=== PATIENT | female | born 1940 | race African-American/Black ===

== ENCOUNTER 2017-05-06 15:14 | Emergency (ER) | payer MEDICARE, BC ==
[~2017-05-06] VITALS: Ht 157.5 cm; Wt 90.0 kg
[~2017-05-06 15:14] MED LIST: ENALAPRIL10 MG PO; LEVOTHROID150 MCG PO; MAXZIDE PO; MAXZIDE-2537.5 MG/TA; METFORMIN500 MG PO; PRAVASTATIN40 MG PO; TRAMADOL HCL50 MG PO
[2017-05-06] MEDS ORDERED: METFORMIN500 MG PO (15:35)
[2017-05-06] MEDS ORDERED: LISINOP/HCTZ1 TA2 PO (15:36)
[2017-05-06 15:48] LABS: IMMATURE GRANULOCYTES 1.8 % (0.0-1.0); MEAN CELL VOLUME 122.2 fL CALC (80.0-100.0); MEAN CORPUSCULAR HGB 43.6 pG CALC (26.0-32.0); MEAN CORPUSCULAR HGB CONC 35.7 g/L CALC (32.0-36.0); NEUT# 1.85 thou/uL (2.00-7.15); RED BLOOD COUNT 1.17 mill/uL (4.20-5.60); RED CELL DISTRI WIDTH 17.8 % (11.5-15.5)
[2017-05-06 15:58] LABS: HEMATOCRIT 14.3 % (37.0-47.0); HEMOGLOBIN 5.1 g/dl (12.0-16.0)
[2017-05-06 16:01] LABS: ACT PARTIAL THROMBO TIME 20.3 SECONDS (20.0-32.5); INTERNATIONAL NORMALIZED RATIO 1.1 RATIO (0.7-1.3); PROTHROMBIN TIME 11.8 SECONDS (9.0-12.5)
[2017-05-06 16:04] LABS: ALBUMIN 4.5 g/dL (3.2-5.0); BILIRUBIN, TOTAL 3.6 mg/dL (0.0-1.4); CALCIUM 9.4 mg/dL (8.4-10.2); CREATININE 1.1 mg/dL (0.5-1.0); POTASSIUM 3.9 mmol/l (3.5-5.1); TOTAL PROTEIN 7.5 g/dL (6.3-8.2)
[2017-05-06 17:00] VITALS: BP 137/61
[2017-05-06 17:39] VITALS: BP 137/61
== END 2017-05-06 17:40 | disposition short-term general hospital (02) ==
LOC: ED 15:14
PROVIDERS: Emergency Medicine
PROC: 30233N1 Transfusion of Nonautologous Red Blood Cells into Peripheral Vein, Percutaneous Approach (ICD-10-PCS; principal; 2017-05-06)
DX: D64.9 Anemia, unspecified (principal); R53.1 Weakness; R06.02 Shortness of breath; I10 Essential (primary) hypertension; E11.9 Type 2 diabetes mellitus without complications; Z79.84 Long term (current) use of oral hypoglycemic drugs; R94.31 Abnormal electrocardiogram [ECG] [EKG]
CPT/HCPCS: P9016; S0164

== ENCOUNTER 2017-06-08 12:36 | Emergency (ER) | payer MEDICARE, BC ==
[~2017-06-08] VITALS: Ht 157.5 cm; Wt 95.0 kg
[~2017-06-08 12:36] MED LIST changes: +LISINOP/HCTZ1 TA2 PO
[2017-06-08 13:55] LABS: IMMATURE GRANULOCYTES 0.3 % (0.0-1.0); MEAN CELL VOLUME 99.5 fL CALC (80.0-100.0); MEAN CORPUSCULAR HGB 33.3 pG CALC (26.0-32.0); MEAN CORPUSCULAR HGB CONC 33.5 g/L CALC (32.0-36.0); NEUT# 1.01 thou/uL (2.00-7.15); RED BLOOD COUNT 1.92 mill/uL (4.20-5.60)
[2017-06-08 14:00] LABS: HEMATOCRIT 19.1 % (37.0-47.0); HEMOGLOBIN 6.4 g/dl (12.0-16.0)
[2017-06-08 14:05] LABS: ALBUMIN 4.6 g/dL (3.2-5.0); BILIRUBIN, TOTAL 2.6 mg/dL (0.0-1.4); CALCIUM 9.4 mg/dL (8.4-10.2); CREATININE 1.3 mg/dL (0.5-1.0); POTASSIUM 3.7 mmol/l (3.5-5.1); TOTAL PROTEIN 7.7 g/dL (6.3-8.2)
[2017-06-08 19:11] VITALS: BP 96/59
== END 2017-06-08 19:11 | disposition short-term general hospital (02) ==
LOC: ED 12:36
PROVIDERS: Emergency Medicine
DX: D64.9 Anemia, unspecified (principal); E11.9 Type 2 diabetes mellitus without complications; I10 Essential (primary) hypertension; R94.31 Abnormal electrocardiogram [ECG] [EKG]
CPT/HCPCS: S0164

== ENCOUNTER 2018-07-02 08:51 | Emergency (ER) | payer MEDICARE, BC ==
[~2018-07-02] VITALS: Ht 157.5 cm; Wt 105.0 kg
[2018-07-02 09:54] LABS: IMMATURE GRANULOCYTES 0.2 % (0.0-5.0); MEAN CORPUSCULAR HGB 28.1 pG CALC (26.0-32.0); MEAN CORPUSCULAR HGB CONC 32.1 g/L CALC (32.0-36.0); NEUT# 1.85 thou/uL (2.00-7.15); RED BLOOD COUNT 4.81 mill/uL (4.20-5.60); RED CELL DISTRI WIDTH 14.8 % (11.5-15.5)
[2018-07-02 09:57] LABS: HEMOGLOBIN 13.5 g/dl (12.0-16.0); MEAN CELL VOLUME 87.3 fL CALC (80.0-100.0)
[2018-07-02] MEDS ORDERED: ATORVASTATIN CA40 MG PO (10:00)
[2018-07-02] MEDS ORDERED: B-121000 MC1 PO (10:00)
[2018-07-02] MEDS ORDERED: LEVOTHYROXIN100 MCG PO (10:01)
[2018-07-02] MEDS ORDERED: ASPIRIN81 MG PO (10:01)
[2018-07-02] MEDS ORDERED: PANTOPRAZOLE SO40 MG PO (10:02)
[2018-07-02 10:05] LABS: ANION GAP 13 (6-22 (CALC)); BUN 20 mg/dL (8-23); BUN/CREATININE RATIO 25 (12-20 (CALC)); CARBON DIOXIDE 28 mmol/l (22-30); CHLORIDE 105 mmol/l (95-108); CREATININE 0.8 mg/dL (0.5-1.0); GFR > 60 ML/MIN (>=60 (CALC)); GFR FOR AFR.AMER. > 60 ML/MIN (>=60 (CALC)); POTASSIUM 3.7 mmol/l (3.5-5.1); SODIUM 143 mmol/l (137-146)
[2018-07-02 11:03] LABS: HEMATOCRIT 42.2 % (37.0-47.0); HEMOGLOBIN 13.6 g/dl (12.0-16.0)
[2018-07-02 11:55] VITALS: BP 102/60
== END 2018-07-02 12:03 | disposition home or self-care (01) ==
LOC: ED 08:51
PROVIDERS: Family Medicine
DX: Z03.89 Encounter for observation for other suspected diseases and conditions ruled out (principal)